=== PATIENT | male | born 1995 | race Caucasian/White ===

== ENCOUNTER 2017-10-19 18:43 | Emergency (ER) | payer SELFPAY ==
[2017-10-19 18:45] VITALS: BP 146/88; PULSE 85; RESP 16; TEMP 36.7; O2SAT 97; BMI 29.5
--- NOTE | 2017-10-19 19:27 | RAD_ITS ---
STUDY: X-RAY - LEFT CLAVICLE REASON FOR EXAM: Male, 22 years old. 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 PAIN IN LEFT CLAVICLE INTO LEFT SHOULDER. TECHNIQUE: 2 view(s) of the clavicle. COMPARISON: None. FINDINGS: Normal clavicle. Normal acromioclavicular articulation. Normal visualized sternoclavicular articulation. Normal visualized pulmonary apex. RAD/Clavicle IMPRESSION: Normal x-ray examination of the clavicle. Electronically Signed: Shannon Pham MD at 19:42 EST , Service support ,
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
[2017-10-19 20:11] VITALS: RESP 16
--- NOTE | 2017-10-19 20:16 | NURSING ---
pt requesting pain medication before he leaves the hospital stated to the doctor his girlfriend was picking him up
[2017-10-19] MEDS: oxyCODONE 5 MG Tablet 10 MG PO (20:22)
== END 2017-10-19 20:23 | disposition home or self-care (01) ==
PROVIDERS: Emergency Provider Emergency Medicine
DX: S40.012A Contusion of left shoulder, initial encounter (principal); W20.8XXA Other cause of strike by thrown, projected or falling object, initial encounter; Y93.9 Activity, unspecified; Y92.9 Unspecified place or not applicable; Y99.9 Unspecified external cause status; Z72.0 Tobacco use
CPT/HCPCS: 73000; 99282

== ENCOUNTER 2019-10-09 08:56 | Emergency (ER) | payer SELFPAY ==
[2019-10-09 08:56] VITALS: BP 152/48; PULSE 82; RESP 18; TEMP 36.4; O2SAT 96; BMI 31.4
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
== END 2019-10-09 11:28 | disposition home or self-care (01) ==
PROVIDERS: Emergency Provider Emergency Medicine
DX: S05.01XA Injury of conjunctiva and corneal abrasion without foreign body, right eye, initial encounter (principal); H40.051 Ocular hypertension, right eye; W22.8XXA Striking against or struck by other objects, initial encounter; Y93.9 Activity, unspecified; Y92.9 Unspecified place or not applicable; Y99.9 Unspecified external cause status; Z88.5 Allergy status to narcotic agent; F17.200 Nicotine dependence, unspecified, uncomplicated
CPT/HCPCS: 99282

== ENCOUNTER 2021-06-19 17:45 | Emergency (ER) | payer SELFPAY ==
[2021-06-19 17:46] VITALS: BP 115/72; PULSE 64; RESP 18; TEMP 36.8; O2SAT 97; BMI 29.6
== END 2021-06-19 20:56 | disposition left against medical advice (07) ==
LOC: ED 21:02
DX: S09.90XA Unspecified injury of head, initial encounter (principal); M54.2 Cervicalgia; Z53.21 Procedure and treatment not carried out due to patient leaving prior to being seen by health care provider